=== PATIENT | male | born 1995 | race Hispanic/Latino ===

== ENCOUNTER → 2020-05-07 | Outpatient (CLI) | payer BC ==
[~2020-05-07] MED LIST: KEFLEX250 MG PO; LORTAB 51 EA PO; [UNRECOGNIZED DRUG - OTHER]
== END ==
LOC: US 11:39
PROVIDERS: ATTEND Internal Medicine Gastroenterology
DX: R10.11 Right upper quadrant pain (principal); K21.9 Gastro-esophageal reflux disease without esophagitis
CPT/HCPCS: 76705